=== PATIENT | male | born 1990 | race Two or more races ===

== ENCOUNTER 2018-08-22 16:05 | Emergency (ER) | payer OTHER ==
--- NOTE | 2018-08-22 16:09 | ER Report ---
History and Physical Time Seen By MD: 16:09 HPI/ROS CHIEF COMPLAINT: Nail embedded in hand HISTORY OF PRESENT ILLNESS: This is a 28-year-old male who presents to the emergency department for a nail stuck in his hand. Patient states that he was clint today, the pneumatic coiled nail gun was jammed, he was trying to fix the gun it slipped subsequently shot a clint nail its intervention three quarters long into the proximal aspect of his left hand. The tip of the nail is just barely penetrating the dorsum of the left hand. CMS is intact, he states it hurts to move any of the fingers or hand, he does have some tingling to the pinky finger. Fingers are cold to touch however the right hand is cold as well. No bleeding. He states there are barbs on the nail. His tetanus was updated within the last year. REVIEW OF SYSTEMS: Constitutional: No fever, no chills. Eyes: No discharge. ENT: No sore throat. Cardiovascular: No chest pain, no palpitations. Respiratory: No cough, no shortness of breath. Gastrointestinal: No abdominal pain, no vomiting. Genitourinary: No hematuria. Musculoskeletal: As above. Skin: No rashes. Neurological: No headache. Allergies: Coded Allergies: No Known Drug Allergies (Unverified , 08/22/18) Home Meds Active Scripts Hydrocodone Bit/Acetaminophen (NORCO 5-325 TABLET) 1 Each Tablet, 1 EACH PO Q4- 6H PRN for PAIN, #5 TAB Prov:DEMETRICE CASEYP-BC 08/22/18 Amoxicillin/Pot Clav 875-125 Mg Tab (AUGMENTIN 875-125 TABLET) 1 Each Tablet, 1 TAB PO Q12H for 10 Days, #20 TAB 0 Refills Prov:DEMETRICE CASEYP-BC 08/22/18 Past Medical/Surgical History The patient has no significant past medical or surgical history. Reviewed Nurses Notes: Yes Constitutional Vital Sign - Last 24 Hours 08/22/18 08/22/18 08/22/18 08/22/18 16:05 16:09 16:10 16:20 Temp 97.7 Pulse ??? 57 66 Resp 16 B/P (MAP) 153/93 (113) 153/93 Pulse Ox 99 99 O2 Delivery Room Air 08/22/18 08/22/18 08/22/18 6/11/19 16:30 16:35 16:50 17:00 Pulse 74 64 B/P (MAP) 135/80 (98) 141/87 (105) Pulse Ox 100 99 08/22/18 08/22/18 08/22/18 08/22/18 17:05 17:20 17:30 17:35 Pulse 64 55 49 Resp 18 21 B/P (MAP) 134/84 (101) Pulse Ox 98 94 96 08/22/18 08/22/18 08/22/18 08/22/18 17:50 17:55 18:00 18:10 Pulse 58 50 48 Resp 16 12 16 B/P (MAP) 136/85 (102) Pulse Ox 89 94 96 08/22/18 08/22/18 08/22/18 08/22/18 18:11 18:15 18:20 18:25 Pulse 75 Resp 22 B/P (MAP) 138/91 (107) 140/86 (104) 169/106 (127) 175/91 (119) Pulse Ox 96 08/22/18 08/22/18 08/22/18 08/22/18 18:30 18:35 18:40 18:55 Pulse 59 65 Resp 18 21 B/P (MAP) 173/105 (127) 169/114 (132) 148/115 (126) Pulse Ox 98 100 08/22/18 08/22/18 08/22/18 19:00 19:10 19:25 Pulse 60 ??? Resp 20 B/P (MAP) 161/99 (119) Pulse Ox 100 Physical Exam General Appearance: The patient is alert, has no immediate need for airway protection and no signs of toxicity. Eyes: Pupils equal and round no pallor or injection. ENT, Mouth: Mucous membranes are moist. Respiratory: There are no retractions, lungs are clear to auscultation. Cardiovascular: Regular rate and rhythm. Gastrointestinal: Abdomen is soft and non tender, no masses, bowel sounds nor mal. Neurological: Alert and oriented 4. Moving all Achilles. Following all commands. No focal neuro deficits. Skin: Cool and dry, no rashes. Musculoskeletal: Neck is supple non tender. Extremities left hand with a clint nail embedded, the head of the nail on the proximal palmar side, the skin on the dorsum side of the hand tenting with the tip of the nail just barely penetrating the skin. Bleeding controlled. Sensation intact to the hand and fingers, he is unable to move his fingers or hand they are in a contracted position. DIFFERENTIAL DIAGNOSIS: After history and physical exam differential diagnosis was considered for fracture, tendon laceration, nerve laceration. Medical Decision Making EKG/Imaging Imaging PATIENT NAME: Elroy Slater : 1990 MR: [id number] V: [id number] EXAM DATE: ORDERING PHYSICIAN: DEMETRICE CASEY TECHNOLOGIST: Location: [facility] - [place] Patient: Elroy Slater : 1990 Visit/Account:[id number] Date of Sevice: 08/22/2018 INDICATION: post nail removal. DATE: 08/22/2018 6:48 PM. TECHNIQUE: HAND COMPLETE LEFT COMPARISON: And radiographs of the same day FINDINGS: The nail has been removed from the hand. There is no residual foreign body. While there is no bony fragmentation, the cylindrical lucency through the base of the fourth metacarpal likely corresponds to an injury from the nail. IMPRESSION: No residual foreign body. Report Dictated By: Jose F Lehman MD at 08/22/2018 6:48 PM Report E-Signed By: Jose F Lehman MD at 08/22/2018 6:49 PM WSN:[id number] PATIENT NAME: Elroy Slater : 1990 MR: [id number] V: [id number] EXAM DATE: ORDERING PHYSICIAN: DEMETRICE CASEY TECHNOLOGIST: Location: [facility] - [place] Patient: Elory Slater : 1990 Visit/Account:[id number] Date of Sevice: 08/22/2018 Exam type: HAND COMPLETE LEFT History: nail vs hand Comparison: None. Findings: There is a metallic nail traversing the left hand from the palmar aspect to the dorsal aspect with the distal tip extending beyond the skin. The nail appears to be situated between the bases of the third and fourth metacarpals. No definite fracture is seen IMPRESSION: 1. Metallic nail traverses the left hand from the palmar aspect of the dorsal aspect of the distal tip extending beyond the skin. The nail appears to be situated between the bases of the third and fourth metacarpals. No definite fracture seen Report Dictated By: Linda Mulligan MD at 08/22/2018 4:45 PM Report E-Signed By: Linda Mulligan MD at 08/22/2018 4:48 PM WSN:[email or web address] ED Course/Re-evaluation Clinical Indication for ER IV: IV Access ED Course The patient was admitted to room. A history and physical obtained. Diagnoses were considered. An IV was started. 1 g of Ancef was given IV. Patient was given 4 mg IV Zofran, so 0.5 mg IV Dilaudid 2. An x-ray of the left hand was obtained, showing obvious nail foreign body, no obvious fractures. The patient was sedated as noted below, the nail was successfully removed patient tolerated well. The wound was thoroughly cleansed and irrigated. Repeat x-ray negative for acute fracture. I did review the information with the patient. Patient was placed in a splint for comfort, a sling as well. For comfort. He was instructed to follow-up with [facility] for reevaluation this week. He was given a prescription for Augmentin and hydrocodone. Patient had no other questions or concerns at the time of discharge, was agreeable with the plan of care. 08/22/2018 5:10:35 pm I did speak with Dr. Victor, the orthopedist on-call, we did discuss the case, reviewed the x-ray results, I did tell him that I plan to sedate the patient's chart pulled the nail and relatively have any difficulties then contact him again, he agreed with this plan. Patient will follow-up with the orthopedic Specialists this week for reevaluation. 08/22/2018 6:23:19 pm the nail was successfully removed from the palmar side, it was thoroughly irrigated. Procedure: Procedural sedation. A pre-sedation evaluation was completed on the patient at 1825. Patient is an appropriate candidate for procedural sedation. The risks of the sedation were discussed with the patient. A time out was completed. The patient was sedated with 50 g IV fentanyl, 100 mg IV ketamine. The patient was monitored with continuous pulse oximetry and director of radio services. There were no complications and no significant hypoxemia. I remained at the bedside for the sedation. The total time I spent in the procedural sedation was 15 minutes. Decision to Disposition Date: Aug 22, 2018 Decision to Disposition Time: 19:15 Depart Departure Latest Vital Signs Vital Signs Date Time Temp Pulse Resp B/P (MAP) Pulse Ox O2 Delivery O2 Flow Rate FiO2 08/22/18 19:25 ??? 08/22/18 19:10 20 100 08/22/18 19:00 161/99 (119) 08/22/18 16:10 97.7 Room Air Impression: Primary Impression: Foreign body hand Additional Impression: Work related injury Condition: Improved Disposition: HOME OR SELF-CARE Referrals: MARIA FANG MD, MARK MD New Scripts Hydrocodone Bit/Acetaminophen (NORCO 5-325 TABLET) 1 Each Tablet 1 EACH PO Q4-6H PRN for PAIN, #5 TAB Prov: DEMETRICE CASEY-BC 08/22/18 Amoxicillin/Pot Clav 875-125 Mg Tab (AUGMENTIN 875-125 TABLET) 1 Each Tablet 1 TAB PO Q12H for 10 Days, #20 TAB 0 Refills Prov: DEMETRICE CASEY-BC 08/22/18 Departure Forms: ER Transition Record, Medications Reconciliation, Patient Portal Information Patient Instructions: Soft Tissue Foreign Body (ED) Additional Instructions: There was no sign of fracture after the nail was removed. I have given you one dose of IV antibiotics. You will take oral antibiotics for 10 days too. Be sure to monitor for signs of infection, such as redness swelling, or pus coming from the wound. Keep the wound covered and clean. Clean the areas several times a day with soap and water. Use the splint for comfort. Please follow up with Ortho within the next 2-4 days for reevaluation. Take Ibuprofen or Tylenol as needed for pain. Take the Hydrocodone for severe pain, no drinking alcohol, driving or operating machinery while taking narcotics. Return to the ED for any other concerns or worsening symptoms. Problem Qualifiers DEMETRICE CASEY PHARMACY STUDENT-BC Aug 22, 2018 16:09
[2018-08-22] MEDS ORDERED: HYDROMORPHONE HCL 1 MG/ML SYRINGE IVP ONE ×3 (16:15→18:55)
[2018-08-22] MEDS ORDERED: ONDANSETRON 4 MG/2 ML VIAL IVP ONE (16:15)
[2018-08-22] MEDS ORDERED: ceFAZolin(*) 1 GM VIAL 1 GM in NS(*) 0.9% 100 ML MINI-BAG 100 ML IV ONE (16:15)
--- NOTE | 2018-08-22 16:53 | RADIOLOGY IMAGING REPORT ---
FACILITY: PATIENT NAME: Elroy Slater : 1990 MR: [id number] V: [id number] EXAM DATE: ORDERING PHYSICIAN: DEMETRICE CASEY TECHNOLOGIST: Location: [facility] Patient: Elroy Slater : 1990 Visit/Account:[id number] Date of Sevice: 08/22/2018 Exam type: HAND COMPLETE LEFT History: nail vs hand Comparison: None. Findings: There is a metallic nail traversing the left hand from the palmar aspect to the dorsal aspect with th e distal tip extending beyond the skin. The nail appears to be situated between the bases of the thi rd and fourth metacarpals. No definite fracture is seen IMPRESSION: 1. Metallic nail traverses the left hand from the palmar aspect of the dorsal aspect of the distal t ip extending beyond the skin. The nail appears to be situated between the bases of the third and fou rth metacarpals. No definite fracture seen Report Dictated By: Linda Mulligan MD at 08/22/2018 4:45 PM Report E-Signed By: Linda Mulligan MD at 08/22/2018 4:48 PM WSN:[email or web address]
[2018-08-22] MEDS ORDERED: NS(*) 0.9% 1000 ML BAG 1,000 ML IV ONE (17:10)
[2018-08-22] MEDS ORDERED: KETAMINE HCL-NS 50 MG/5 ML SYR IVP ONE (17:15)
[2018-08-22] MEDS ORDERED: fentaNYL CITR 100 MCG/2 ML AMP IVP ONE (17:55)
--- NOTE | 2018-08-22 18:54 | RADIOLOGY IMAGING REPORT ---
FACILITY: [facility] - [place] PATIENT NAME: Elroy Slater : 1990 MR: [id number] V: [id number] EXAM DATE: ORDERING PHYSICIAN: DEMETRICE CASEY TECHNOLOGIST: Location: [facility] - [place] Patient: Elroy Slater : 1990 Visit/Account:[id number] Date of Sevice: 08/22/2018 INDICATION: post nail removal. DATE: 08/22/2018 6:48 PM. TECHNIQUE: HAND COMPLETE LEFT COMPARISON: And radiographs of the same day FINDINGS: The nail has been removed from the hand. There is no residual foreign body. While there i s no bony fragmentation, the cylindrical lucency through the base of the fourth metacarpal likely cor responds to an injury from the nail. IMPRESSION: No residual foreign body. Report Dictated By: Jose F Lehman MD at 08/22/2018 6:48 PM Report E-Signed By: Jose F Lehman MD at 08/22/2018 6:49 PM WSN:[email or web address]
[2018-08-22 19:00] VITALS: BP 161/99
[2018-08-22] MEDS ORDERED: AMOX-559 PO (19:24)
[2018-08-22] MEDS ORDERED: HYDR-653 PO (19:24)
[2018-08-22] MEDS ORDERED: APAP/HYDROCODONE 325/5 TAB PO ONE (19:40)
[2018-08-22] MEDS ORDERED: ACET/HYDROC 5/325MG TH ER ONLY 2 TAB/BOTTLE PO ONE (19:40)
[2018-08-22] MEDS ORDERED: ONDANSETRON 4 MG ODT TABDP SL ONE (19:50)
[2018-08-22] MEDS ORDERED: ONDANSETRON 4 MG ODT TH SL ONE (19:50)
== END 2018-08-22 20:02 | disposition home or self-care (01) ==
LOC: ER 16:18
DX: S61.442A Puncture wound with foreign body of left hand, initial encounter (principal); W29.4XXA Contact with nail gun, initial encounter
CPT/HCPCS: 96361; 96365; 96375; 96376; 99152; 99285; J0690; J1170; J2405; J3010; J3490; J7030